=== PATIENT | female | born 1950 | race Caucasian/White ===

== ENCOUNTER → 2016-07-13 | Outpatient (CLI) | payer OTHER ==
[~2016-07-13] MED LIST: ADVAIR 250-501 EACH IH; ASA325 MG PO; EXCEDRIN DPS1 TAB PO; GLUCOPHAGE-DPS500 MG PO; LANSOPRAZOLE30 MG PO; LISINOPRIL20 MG PO; NASONEX17 GM NS; SYNTHROID75 MCG PO; ZYRTEC10 M3 PO
== END | disposition home or self-care (01) ==
LOC: RAD.S 12:43
DX: Z12.31 Encounter for screening mammogram for malignant neoplasm of breast (principal)